=== PATIENT | female | born 1965 | race Two or more races ===

== ENCOUNTER 2024-03-07 14:17 | Inpatient (IN) | payer MEDICAID, OTHER ==
[~2024-03-07] VITALS: Ht 162.6 cm; Wt 78.4 kg
--- NOTE | 2024-03-07 15:15 | ED.PDOC ---
History of Present Illness HPI Comments A 58 year old female presents to the ED with a chief complaint of nausea and vomiting onset December 2023. Patient states her symptoms began when she was in [place], was not prescribed medication, came to [facility] and was treated. Patient also noticed constipation for the past few months, has been taking Lactulose daily, increased urination causing her to wear diapers, nausea, vomiting, "feels something stuck" in her epigastric region causing sharp pain and inability to tolerate food or fluids. Patient noticed she slowly has to take sips of water. Upon triage, patient's blood glucose was 411 and denies and history of DM. No other symptoms or modifying factors present at this time. 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 Pertinent MARKETING TRAFFIC MANAGER History Family History Family History: Reviewed,noncontributory to illness, No family hx of Cancer, No family hx of DM, No family hx of Heart maia, No family hx of HTN, No family hx ofKidney maia, No family hx of Liver maia, No family hx of Lung maia, No family hx of Stroke Social History Smoker: Non-Smoker Alcohol: Denies ETOH Use Drugs: Denies Drug Use Lives In: Home Constitutional: denies: chills, diaphoresis, fatigue, fever, malaise, sweats, weakness, others EENTM: denies: blurred vision, double vision, ear bleeding, ear discharge, ear drainage, ear pain, ear ringing, eye pain, eye redness, hearing loss, mouth pain, mouth swelling, nasal discharge, nose bleeding, nose congestion, nose pain, photophobia, tearing, throat pain, throat swelling, voice changes, others Respiratory: reports: shortness of breath; denies: cough, hemoptysis, orthopnea, SOB at rest, SOB with excertion, stridor, wheezing, others Cardiovascular: denies: chest pain, dizzy spells, diaphoresis, Dyspnea on exertion, edema, irregular heart beat, left arm pain, lightheadedness, palpitations, PND, syncope, others Gastrointestinal: reports: constipated, difficulty swallowing, nausea, poor fluid intake, vomiting; denies: abdomen distended, abdominal pain, blood streaked bowels, diarrhea, dysphagia, hematemesis, melena, poor appetite, rectal bleeding, rectal pain, others Genitourinary: denies: abnormal vagina bleeding, burning, dyspareunia, dysuria, flank pain, frequency, hematuria, incontinence, pain, , vagina discharge, urgency, others Neurological: denies: dizziness, fainting, headache, left sided numbness, left sided weakness, numbness, paresthesia, pre-existing deficit, right sided numbness, right sided weakness, seizure, speech problems, tingling, tremors, weakness, others Musculoskeletal: denies: back pain, gout, joint pain, joint swelling, muscle p ain, muscle stiffness, neck pain, others Integumetry: denies: bruises, change in color, change in hair/nails, dryness, laceration, lesions, lumps, rash, wounds, others Allergic/Immunocompromised: denies: Difficulty Healing, Frequent Infections, Hives, Itching, others Hematologic/Lymphatic: denies: anemia, blood clots, easy bleeding, easy bruising, swollen glands, others Endocrine: reports: excessive urination; denies: excessive hunger, excessive sweating, excessive thirst, flushing, intolerance to cold, intolerance to heat, unexplained weight gain, unexplained weight loss, others Psychiatric: denies: anxiety, bipolar disorder, depression, hopeless, panic disorder, schizophrenia, sleepless, suicidal, others All Other Systems: Reviewed and Negative Physical Exam General Appearance: No Apparent Distress HEENT: Other (Dry mucous membranes) Neck: Full Range of Motion, Normal Inspection Respiratory: Lungs Clear, No Accessory Muscle Use, No Respiratory Distress, Normal Breath Sounds Cardiovascular: No Edema, No JVD, Regular Rate/Rhythm Breast Exam: Deferred Gastrointestinal: Non Tender, Soft Genitalia: Deferred Pelvic: Deferred Rectal: Deferred Extremities: Normal inspection, Normal range of motion, Non-tender, No pedal edema Neurologic: Alert, Normal Affect, Normal Mood, Other (Ambulatory without difficulty. No gross focal deficit.) Cerebellar Function: NOT DONE Reflexes: NOT DONE Skin: Dry, Normal Color, Warm Lymphatic: NOT DONE Was a procedure done? Was a procedure done?: No Differential Dx Considerations may include: Gastritis, GERD, esophagitis, dehydration, electrolyte imbalance, hyperglycemia, hyperglycemic hyperosmolar state, DKA, ABIOLA among others X-Ray, Labs, Meds, VS Vital Signs Date Time Temp Pulse Resp B/P (MAP) Pulse Ox O2 Delivery O2 Flow Rate FiO2 03/07/24 18:27 79 18 113/78 (90) 97 03/07/24 18:27 79 79 97 Room Air 03/07/24 14:57 98.2 91 16 110/80 (90) 99 Lab Test 03/07/24 16:47 03/07/24 15:50 Range/Units Troponin I High Sensitivity 6 5 </=34 ng/L White Blood Count 4.6 4.4-10.8 10^3/uL Red Blood Count 4.94 4.0-5.20 10^6/uL Hemoglobin 14.6 12.2-16.2 g/dL Hematocrit 44.7 36.0-46.0 % Mean Corpuscular Volume 90.4 80.0-100.0 fL Mean Corpuscular Hemoglobin 29.5 28.0-32.0 pg Mean Corpuscular Hemoglobin Concent 32.6 32.0-36.0 g/dL Red Cell Distribution Width 14.9 H 11.8-14.3 % Platelet Count 167 140-450 10^3/uL Mean Platelet Volume 10.9 H 6.9-10.8 fL Neutrophils (%) (Auto) 41.1 37.0-80.0 % Lymphocytes (%) (Auto) 44.2 10.0-50.0 % Monocytes (%) (Auto) 7.2 0.0-12.0 % Eosinophils (%) (Auto) 6.6 0.0-7.0 % Basophils (%) (Auto) 0.9 0.0-2.0 % Neutrophils # (Auto) 1.9 1.6-8.6 10 ^3/uL Lymphocytes # (Auto) 2.1 0.4-5.4 10 ^3/uL Monocytes # (Auto) 0.3 0-1.3 10 ^3/uL Eosinophils # (Auto) 0.3 0-0.8 10 ^3/uL Basophils # (Auto) 0 0-0.2 10 ^3/uL Nucleated Red Blood Cells 0.5 % Sodium Level 134 L 136-145 mmol/L Potassium Level 4.8 3.5-5.1 mmol/L Chloride Level 96 L 98-107 mmol/L Carbon Dioxide Level 19 L 20-31 mmol/L Anion Gap 19 H 5-15 Blood Urea Nitrogen 8 L 9-23 mg/dL Creatinine 1.51 H 0.550-1.02 mg/dL Glomerular Filtration Rate Calc 40 >90 mL/min BUN/Creatinine Ratio 5.3 L 10.0-20.0 Serum Glucose 426 *H 74-106 mg/dL Calcium Level 10.7 H 8.7-10.4 mg/dL Total Bilirubin 0.6 0.2-1.0 mg/dL Aspartate Amino Transferase (AST) 16 13-40 U/L Alanine Aminotransferase (ALT) 21 7-40 U/L Alkaline Phosphatase 126 H 46-116 U/L B-Type Natriuretic Peptide Pending Total Protein 7.1 5.7-8.2 g/dL Albumin 4.7 3.2-4.8 g/dL Lipase 33 12-53 U/L Beta-Hydroxybutyric Acid > 4.500 H < 0.4 mmol/L Current Medications Medications (Trade) Dose Ordered Sig/Sidney Route Start Time Stop Time Status Last Admin Sodium Chloride 1,000 ml @ 1,000 mls/hr Q1H ONCE IV 03/07/24 15:30 03/07/24 16:29 DC 03/07/24 15:30 Lidocaine HCl (Xylocaine 2% Viscous) 10 ml ONCE ONCE PO 03/07/24 15:30 03/07/24 15:31 DC 03/07/24 15:30 Belladonna Alkaloids/ Phenobarbital ( Elixir) 10 ml ONCE ONCE PO 03/07/24 15:30 03/07/24 15:31 DC 03/07/24 15:30 Al Hydrox/Mg Hydrox/Simethicone (Maalox Plus) 30 ml ONCE ONCE PO 03/07/24 15:30 03/07/24 15:31 DC 03/07/24 15:30 PROCEDURE(s): CXRP - CHEST PORTABLE REASON: cp ORDER NUMBER(s): [id number], ACCESSION NUMBER(s): [id number] CHEST RADIOGRAPH Indication: cp Technique: Single frontal view of the chest was obtained COMPARISON: None FINDINGS: Lines and Tubes: None Lungs: Right middle lobe opacity may reflect atelectasis or mild pneumonia. Pleura: No effusion. No pneumothorax. Cardiomediastinal contours: Unremarkable Bones: Unremarkable IMPRESSION: 1. Right middle lobe opacity may reflect atelectasis or mild pneumonia. X-Ray, Labs, Meds, VS Comment 58-year-old female with no known past medical history complaining of nausea, vomiting, esophageal pain, and found to have glucose in the 400s Vitals unremarkable Exam remarkable for dry mucous membranes Rhythm strip independently interpreted by me: Sinus rhythm, rate 91, no ectopy. Chest x-ray: IMPRESSION: 1. Right middle lobe opacity may reflect atelectasis or mild pneumonia. CBC unremarkable, comprehensive metabolic panel remarkable for sodium 134, chloride 96, CO2 19, BUN 8, creatinine 1.51, glucose 426, anion gap 19 Beta hydroxybutyrate greater than 4.5 UA and ABG pending Patient treated with the following in the ED: 1 L 0.9 normal saline IV bolus, regular insulin 6 units IV, followed by DKA protocol. Patient also received Rocephin 1 g IV and Zithromax 500 mg IV for coverage of possible pneumonia. Plan is to admit the patient for close control, IV antibiotics and possible GI evaluation. Time of 1ST Reevaluation: 15:28 Reevaluation 1ST: Unchanged Patient Education/Counseling: Diagnosis, Treatment, Prognosis Family Education/Counseling: No Family Present Additional Information HI Data VOL/Complexity Ordered tests: LAB, EKG, XY, PHA reviewed results: TROP, TROP, TROP, CBC, CMP, BNP, UA, LIPASE, BETA- HYDROXYBUTYRATE Interpreted results: XY, EKG, Discuss tx/ results: patient, medical personnel, Departure 1 Departure Time of Disposition: 18:40 Impression: Primary Impression: DKA (diabetic ketoacidosis) Qualified Codes: E13.10 - Other specified diabetes mellitus with ketoacidosis without coma Additional Impressions: Pneumonia Qualified Codes: J18.9 - Pneumonia, unspecified organism Dysphagia Qualified Codes: R13.10 - Dysphagia, unspecified Disposition: 09 ADMITTED INPATIENT Admit to: [facility] Condition: Guarded Critical Care Note Critical Care Time?: Yes (45 min-critical care time only) Critical care comment: Critical care time including multiple bedside re-evaluations, review of lab and imaging studies, and discussion of the case with the admitting provider. Patient is high risk for metabolic decompensation. Stability Stability form required: No Heart Score Heart Score: Heart Score Response (Comments) Value History N/A 0 EKG N/A 0 Age N/A 0 Risk Factors N/A 0 Troponin N/A 0 Total 0 I personally scribed for CECIL AVINA MD ([email or web address]) on 03/07/24 at 15:15. Electronically submitted by Chaisty Moore ([email or web address]). I personally scribed for CECIL AVINA MD ([email or web address]) on 03/07/24 at 15:20. Electronically submitted by Chasity Moore ([email or web address]). I personally scribed for CECIL AVINA MD ([email or web address]) on 03/07/24 at 15:35. Electronically submitted by Chasity Moore ([email or web address]). CECIL AVINA MD Mar 07, 2024 15:15
[2024-03-07] MEDS: MAALOX PLUS or MAALOX 30 ML PO ONE (15:30)
[2024-03-07] MEDS: LIDOCAINE VISCOUS 2% 15ML UD PO ONE (15:30)
[2024-03-07] MEDS: SODIUM CHLORIDE 0.9% 1,000 ML IV ONE (15:30)
[2024-03-07] MEDS: DONNATAL 5ml ORAL Elix (BELLADONNA ALK-PHENOBARB) PO ONE (15:30)
--- NOTE | 2024-03-07 15:52 | DVH ---
CHEST RADIOGRAPH Indication: cp Technique: Single frontal view of the chest was obtained COMPARISON: None FINDINGS: Lines and Tubes: None Lungs: Right middle lobe opacity may reflect atelectasis or mild pneumonia. Pleura: No effusion. No pneumothorax. Cardiomediastinal contours: Unremarkable Bones: Unremarkable IMPRESSION: 1. Right middle lobe opacity may reflect atelectasis or mild pneumonia.
[2024-03-07 16:28] LABS: Basophils # (auto) 0 10 ^3/uL (0-0.2); Basophils % (auto) 0.9 % (0.0-2.0); Eosinophils # (auto) 0.3 10 ^3/uL (0-0.8); Eosinophils % (auto) 6.6 % (0.0-7.0); Hematocrit 44.7 % (36.0-46.0); Hemoglobin 14.6 g/dL (12.2-16.2); Lymphocytes # (auto) 2.1 10 ^3/uL (0.4-5.4); Lymphocytes % (auto) 44.2 % (10.0-50.0); Mean Corpuscular Hemoglobin 29.5 pg (28.0-32.0); Mean Corpuscular Hgb Conc. 32.6 g/dL (32.0-36.0); Mean Corpuscular Volume 90.4 fL (80.0-100.0); Monocytes # (auto) 0.3 10 ^3/uL (0-1.3); Monocytes % (auto) 7.2 % (0.0-12.0); Neutrophils # (auto) 1.9 10 ^3/uL (1.6-8.6); Neutrophils % (auto) 41.1 % (37.0-80.0); Nucleated Red Blood Cells % 0.5 %; Platelet Count (auto) 167 10^3/uL (140-450); Red Blood Cells 4.94 10^6/uL (4.0-5.20); Red Cell Distribution Width 14.9 % (11.8-14.3); White Blood Cell 4.6 10^3/uL (4.4-10.8)
[2024-03-07 16:41] LABS: Alanine Aminotransferase 21 U/L (7-40); Albumin 4.7 g/dL (3.2-4.8); Anion Gap 19 (5-15); Aspartate Aminotransferase 16 U/L (13-40); BUN/Creatinine Ratio 5.3 (10.0-20.0); Bilirubin, Total 0.6 mg/dL (0.2-1.0); Lipase 33 U/L (12-53); Potassium 4.8 mmol/L (3.5-5.1); Total Protein 7.1 g/dL (5.7-8.2)
[2024-03-07 16:53] LABS: Alkaline Phosphatase 126 U/L (46-116); Blood Urea Nitrogen 8 mg/dL (9-23); Calcium 10.7 mg/dL (8.7-10.4); Carbon Dioxide 19 mmol/L (20-31); Chloride 96 mmol/L (98-107); Sodium 134 mmol/L (136-145)
[2024-03-07 16:59] LABS: Glucose 426 mg/dL (74-106)
[2024-03-07] MEDS ORDERED: SODIUM CHLORIDE 0.9% 1,000 ML IV SCH ×2 (18:45→22:45)
[2024-03-07] MEDS ORDERED: DEXTROSE (50%) 50ML SYRG IV PRN ×2 (18:45→19:00)
[2024-03-07] MEDS ORDERED: INSULIN DRIP 100 UNIT/100ML 100 ML IV SCH (18:45)
[2024-03-07] MEDS ORDERED: INSULIN LANTUS (GLARGINE) 1 /0.01ml (100units/ml) SC ONE (18:45)
[2024-03-07 19:00] VITALS: O2SAT 98
[2024-03-07 19:00] LABS: Magnesium 2.2 mg/dL (1.6-2.6)
[2024-03-07] MEDS ORDERED: NITROGLYCERIN 0.4 MG SL TAB SL PRN (19:00)
[2024-03-07] MEDS ORDERED: HYDROcodone-ACET 5/325MG TAB PO PRN (19:00)
[2024-03-07] MEDS ORDERED: MAALOX PLUS or MAALOX 30 ML PO PRN (19:00)
[2024-03-07] MEDS ORDERED: LORazepam 0.5 MG TAB PO PRN (19:00)
[2024-03-07] MEDS ORDERED: MORPHINE SULFATE INJ 2 MG/ml SYRG IV PRN ×2 (19:00)
[2024-03-07] MEDS ORDERED: ACETAMINOPHEN 325 MG TAB PO PRN (19:00)
[2024-03-07] MEDS ORDERED: POTASSIUM CHL 20MEQ/100ML 200 ML IV PRN (19:00)
[2024-03-07 19:02] LABS: Phosphorus 4.2 mg/dL (2.4-5.1)
--- NOTE | 2024-03-07 19:19 | DVHHP2 ---
History of Present Illness Reason for Visit: General weakness History of Present Illness 58-year-old patient with nausea vomiting weakness patient states that she has been having these symptoms for an extended period of time was treated inpatient at [facility] patient had a variety of complaints all over the place including stating she has increased urination increased issues with hydration increased nausea vomiting feeling like she always has food stuck in her stomach patient denies ever having a history of diabetes but on evaluation in the ED patient was shown to have an in acute diabetic gap with acidosis glucose greater than 400 the severely high anion gap patient show the acute signs of DKA states no history of diabetes that she knows of patient was admitted for further evaluation and management currently placed on a insulin drip in the ED Review of Systems Constitutional: Yes: Weakness; No: Fever, Chills, Sweats, Malaise, Other Eyes: No: Pain, Vision change, Conjunctivae inflammation, Eyelid inflammation, Other, Redness ENT: No: Ear pain, Ear discharge, Nose pain, Nose discharge, Nose congestion, Mouth pain, Mouth swelling, Throat pain, Throat swelling, Other Respiratory: Shortness of breath, SOB with excertion; No: Cough, Dry, Wheezing, Hemoptysis, Pleuritic Pain, Sputum, Wheezing, Other Cardiovascular: Chest Pain, Palpitations; No: Orthopnea, Paroxysmal Noc. Dyspnea, Edema, Lt Headedness, Other Gastrointestinal: Nausea, Vomiting, Abdominal Pain; No: Diarrhea, Constipation, Melena, Hematochezia, Other Genitourinary: Dysuria, Frequency, Incontinence; No Hematuria, No Retention, No Other Musculoskeletal: No: other, neck pain, shoulder pain, arm pain, back pain, hand pain, leg pain, foot pain Skin: No: Rash, Lesions, Jaundice, Bruising, Other Neurological: No: Weakness, Numbness, Incoordination, Change in speech, Confu maria esther, Seizures, Other Medications Current Medications Medications Dose Ordered Sig/Sidney Route Start Time Stop Time Status Last Admin Dose Admin Sodium Chloride 1,000 ml @ 500 mls/hr Q2H IV 03/07/24 18:45 03/07/24 22:44 UNV Sodium Chloride 1,000 ml @ 250 mls/hr Q4H IV 03/07/24 22:45 03/08/24 00:44 UNV Sodium Chloride 1,000 ml @ 150 mls/hr Q6H40M IV 03/08/24 00:45 UNV Insulin Human (Reg)/Sodium Chloride 100 ml @ 0.5 mls/hr Q24H IV 03/07/24 18:45 UNV Dextrose 50 ml UD PRN IV 03/07/24 18:45 UNV Diagnostic Test (Pha) 1 strip Q90MIN 03/07/24 19:30 UNV Insulin Glargine 15 units DAILY SC 03/08/24 10:00 UNV Exam Vital Signs Vital Signs Date Time Temp Pulse Resp B/P (MAP) Pulse Ox O2 Delivery O2 Flow Rate FiO2 03/07/24 18:27 79 18 113/78 (90) 97 03/07/24 18:27 Room Air 03/07/24 14:57 98.2 General Appearance: Alert, Oriented X3, moderate distress HEENT: Atraumatic, PERRLA Respiratory: Clear to auscultation, Normal air movement Cardiovascular: Regular rate, Normal S1 Abdominal: Normal bowel sounds, Soft Extremities: No clubbing, No cyanosis Skin: No rashes, No breakdown Neuro: Normal gait, Normal speech Psych/Mental Status: Mood NL Labs/Xrays Labs Test 03/07/24 18:51 03/07/24 18:50 03/07/24 15:50 Range/Units Blood Gas Specimen Type Arterial Blood Gas Sample Site Right radial Blood Gas Patient Temperature 37.0 Arterial Blood Date Drawn [id number] Arterial Blood pH 7.356 7.350-7.450 Arterial Blood Partial Pressure CO2 22.4 L 32.0-45.0 mmHg Arterial Blood Partial Pressure O2 98.7 83.0-108.0 mmHg Arterial Blood HCO3 12.3 L 21.0-28.0 mmol/L Arterial Blood Oxygen Saturation 97.9 94.0-98.0 % Arterial Blood Base Excess -11.0 L -2.0-3.0 mmol/L Arterial Blood Oxyhemoglobin 96.4 94.0-98.0 % Arterial Blood Carboxyhemoglobin 1.1 0.5-1.5 % Arterial Blood Methemoglobin 0.4 0.0-1.5 % Navi Test Modified Blood Gas Total Hemoglobin 14.50 12.0-16.0 g/dL Blood Gas Modality Room air FiO2 % 21.0 White Blood Count 4.6 4.4-10.8 10^3/uL Red Blood Count 4.94 4.0-5.20 10^6/uL Hemoglobin 14.6 12.2-16.2 g/dL Hematocrit 44.7 36.0-46.0 % Mean Corpuscular Volume 90.4 80.0-100.0 fL Mean Corpuscular Hemoglobin 29.5 28.0-32.0 pg Mean Corpuscular Hemoglobin Concent 32.6 32.0-36.0 g/dL Red Cell Distribution Width 14.9 H 11.8-14.3 % Platelet Count 167 140-450 10^3/uL Mean Platelet Volume 10.9 H 6.9-10.8 fL Neutrophils (%) (Auto) 41.1 37.0-80.0 % Lymphocytes (%) (Auto) 44.2 10.0-50.0 % Monocytes (%) (Auto) 7.2 0.0-12.0 % Eosinophils (%) (Auto) 6.6 0.0-7.0 % Basophils (%) (Auto) 0.9 0.0-2.0 % Neutrophils # (Auto) 1.9 1.6-8.6 10 ^3/uL Lymphocytes # (Auto) 2.1 0.4-5.4 10 ^3/uL Monocytes # (Auto) 0.3 0-1.3 10 ^3/uL Eosinophils # (Auto) 0.3 0-0.8 10 ^3/uL Basophils # (Auto) 0 0-0.2 10 ^3/uL Nucleated Red Blood Cells 0.5 % Phosphorus Level 4.2 2.4-5.1 mg/dL Magnesium Level 2.2 1.6-2.6 mg/dL Total Bilirubin 0.6 0.2-1.0 mg/dL Aspartate Amino Transferase (AST) 16 13-40 U/L Alanine Aminotransferase (ALT) 21 7-40 U/L Alkaline Phosphatase 126 H 46-116 U/L Total Protein 7.1 5.7-8.2 g/dL Albumin 4.7 3.2-4.8 g/dL Lipase 33 12-53 U/L Beta-Hydroxybutyric Acid > 4.500 H < 0.4 mmol/L Assessment/Plan Assessment/Plan Admit to [facility] DKA without coma Suspected pneumonia community-acquired DKA protocol Patient with a anion gap greater than 18 Continue with aggressive IV fluid management For suspected pneumonia we will continue with IV antibiotics and p.o. antibiotics IV ceftriaxone and p.o. azithromycin P.r.n. breathing treatments with albuterol and ipratropium We will hold off on steroids as of now due to patient's severely elevated glucose Patient with no stated underlying history of diabetes BNP q.4 to q.6 for evaluation of gap closure Continue insulin drip until gap fully closed Critical care time 42 minutes Plan discussed with: Patient My Orders Orders - GARRY CENTENO MD Procedure Category Date Status Time Insulin Drip Protocol MEENAKSHI 03/07/24 In Process Sodium Chloride 0.9% PHA 03/07/24 Logged 19:00 Sodium Chloride 0.9% PHA 03/07/24 Logged 23:00 Sodium Chloride 0.9% PHA 03/08/24 Logged 01:00 D5w/Sod Chl 0.45%/Kcl PHA 03/07/24 Logged 20meq 19:00 Potassium Chl PHA 03/07/24 Logged 20meq/100ml 19:00 Dextrose 50% Syringe PHA 03/07/24 Logged 19:00 Glucose Blood PHA 03/07/24 Logged (Accu-Chek Comfort 19:30 Complete Blood Count LAB 03/07/24 Logged 18:50 Abg W/ Co-Ox RT 03/07/24 Logged 18:50 Basic Metabolic Panel LAB 03/08/24 Verified 00:50 Basic Metabolic Panel LAB 03/08/24 Verified 06:50 Basic Metabolic Panel LAB 03/08/24 Verified 12:50 Neurological MEENAKSHI 03/07/24 In Process Assessment 18:50 Vs/Hemodynamics MEENAKSHI 03/07/24 In Process 18:50 Insulin R (Human) PHA 03/07/24 Logged (Insulin R) 22:00 Insulin Drip 100 PHA 03/07/24 Logged Unit/100ml (Myxredlin 19:00 Insulin Lantus PHA 03/07/24 Logged (Glargine) (Lantus) 19:00 Insulin Lantus PHA 03/08/24 Logged (Glargine) (Lantus) 10:00 Ceftriaxone 1gm/50ml PHA 03/08/24 Logged D5w (Rocephin) 10:00 Azithromycin Tablet PHA 03/08/24 Logged (Zithromax Tablet) 10:00 Albuterol Medneb PHA 03/07/24 Logged (Ventolin Medneb) 19:00 Ipratropium Medneb PHA 03/07/24 Logged (Atrovent Medneb) 19:00 Med Neb Initial RT 03/07/24 Logged Treatment 18:50 Admit ADMIT 03/07/24 Transmitted 18:50 Code Status CODE 03/07/24 Transmitted 18:50 Vital Signs MEENAKSHI 03/07/24 In Process 18:50 Review Orders With [facility] 03/07/24 In Process Adm. 18:50 Consistent DIET 03/08/24 Transmitted Carb(Ccho)Diabetes Breakfast Lorazepam Tablet PHA 03/07/24 Logged (Ativan Tablet) 19:00 Alum & Mag PHA 03/07/24 Logged Hydrox-Simethicone 19:00 Docusate Sodium PHA 03/07/24 Logged Capsule (Colace 19:00 Acetaminophen Tablet PHA 03/07/24 Logged (Tylenol Tablet) 19:00 Temazepam (Restoril) PHA 03/07/24 Logged 19:00 Notify Md Of Changes [facility] 03/07/24 In Process From Base 18:50 Advance Directive [facility] 03/07/24 In Process 18:50 Patient Condition ORDERS 03/07/24 Transmitted 18:50 Allergies MEENAKSHI 03/07/24 In Process 18:50 Hydrocodone-Acet PHA 03/07/24 Logged 5/325mg Tab ([place] 19:00 Ondansetron Hcl PHA 03/07/24 Logged (Zofran) 19:00 Morphine Sulfate PHA 03/07/24 Logged Injection 19:00 Nitroglycerin PHA 03/07/24 Logged Sublingual (Ntrostat 19:00 Morphine Sulfate [facility] 03/07/24 Logged Injection 19:00 Stat Ekg For Chest [facility] 03/07/24 In Process Pain 18:50 Notify Of Changes [facility] 03/07/24 In Process From Base 18:50 Security Researcher For [facility] 03/07/24 In Process 24 Hours 18:50 Emergency Dysrhythmia [facility] 03/07/24 In Process Protocol 18:50 Rhythm Strips Once [facility] 03/07/24 In Process Every Shift 18:50 Oxygen By Nasal RT 03/07/24 Transmitted Cannula 18:50 Problem List: (1) DKA (diabetic ketoacidosis) (2) Pneumonia (3) Dysphagia Date of Service: Mar 07, 2024 Billing Provider: GARRY CENTENO MD Common Visit Codes: [id number] CARE 30-74 MIN GARRY CENTENO MD Mar 07, 2024 19:19
[2024-03-07] MEDS: ACCU-CHEK COMFORT CURVE STRIP VI SCH (19:23)
[2024-03-07] MEDS ORDERED: ACCU-CHEK COMFORT CURVE STRIP VI SCH (19:30)
[2024-03-07] MEDS: PANTOPRAZOLE 40 MG/10 ML VIAL INJ IV ONE (19:33)
[2024-03-07] MEDS: ONDANSETRON HCL 4 MG/2 ML VIAL IV ONE (19:34)
[2024-03-07 19:36] VITALS: BP 113/78; PULSE 79; RESP 18; TEMP 98.2; O2SAT 97
[2024-03-07 19:40] LABS: Potassium 5.1 mmol/L (3.5-5.1)
[2024-03-07 19:41] LABS: Anion Gap 28 (5-15)
[2024-03-07 19:42] LABS: Urine Bacteria None Seen /hpf (None Seen)
[2024-03-07] MEDS: InsuLIN REG 1unit/0.01ml Soln (100units/ml) IV ONE (19:43)
[2024-03-07 19:46] LABS: BUN/Creatinine Ratio 4.4 (10.0-20.0)
[2024-03-07 19:48] VITALS: PULSE 90; RESP 18; O2SAT 98
[2024-03-07 19:49] LABS: Blood Urea Nitrogen 7 mg/dL (9-23); Carbon Dioxide 10 mmol/L (20-31); Chloride 96 mmol/L (98-107); Sodium 134 mmol/L (136-145)
[2024-03-07 19:53] LABS: Glucose 435 mg/dL (74-106)
[2024-03-07 20:04] LABS: Urine Blood Negative /uL (Negative); Urine Clarity Clear (Clear); Urine Color Light-Yellow (Yellow); Urine Protein, UAD 1+ (Negative); Urine Specific Gravity 1.038 (1.001-1.035); Urine Urobilinogen Normal (Negative); Urine WBC 1 /hpf (0 - 5); Urine pH 5.5 (5.0-9.0)
[2024-03-07] MEDS: cefTRIAXone 1GM/50ML D5W 50 ML IV ONE (21:11)
[2024-03-07] MEDS: SODIUM CHLORIDE 0.9% 1,000 ML IV SCH (21:11)
[2024-03-08] MEDS: AZITHROMYCIN 500MG/ 250ML 250 ML IV ONE (00:31)
[2024-03-08] MEDS ORDERED: SODIUM CHLORIDE 0.9% 1,000 ML IV SCH (00:45)
[2024-03-08 01:33] LABS: Chloride 105 mmol/L (98-107); Potassium 4.7 mmol/L (3.5-5.1); Sodium 141 mmol/L (136-145)
[2024-03-08 01:34] LABS: Anion Gap 23 (5-15); Calcium 9.5 mg/dL (8.7-10.4); Carbon Dioxide 13 mmol/L (20-31)
[2024-03-08 01:39] LABS: BUN/Creatinine Ratio 6.1 (10.0-20.0); Blood Urea Nitrogen 7 mg/dL (9-23); Glucose 306 mg/dL (74-106)
[2024-03-08] MEDS: D5W/SOD CHL 0.45%/KCL 20MEQ 1,000 ML IV SCH (01:40)
[2024-03-08] MEDS: INSULIN LANTUS (GLARGINE) 1 /0.01ml (100units/ml) SC ONE (01:56)
[2024-03-08] MEDS: INSULIN DRIP 100 UNIT/100ML 100 ML IV SCH (02:17)
[2024-03-08] MEDS: SODIUM CHLORIDE 0.9% 1,000 ML IV SCH ×2 (03:34→03:53)
[2024-03-08 06:48] VITALS: O2SAT 95
[2024-03-08 07:24] LABS: Sodium 143 mmol/L (136-145)
[2024-03-08 07:25] LABS: Anion Gap 19 (5-15)
[2024-03-08 07:34] LABS: Carbon Dioxide 15 mmol/L (20-31); Chloride 109 mmol/L (98-107); Potassium 3.3 mmol/L (3.5-5.1)
[2024-03-08 07:35] LABS: Blood Urea Nitrogen 6 mg/dL (9-23); Glucose 154 mg/dL (74-106)
[2024-03-08 08:40] VITALS: PULSE 59; RESP 12; O2SAT 95
[2024-03-08] MEDS ORDERED: INSULIN LANTUS (GLARGINE) 1 /0.01ml (100units/ml) SC SCH (10:00)
[2024-03-08] MEDS ORDERED: cefTRIAXone 1GM/50ML D5W 50 ML IV SCH (10:00)
[2024-03-08] MEDS: INSULIN LANTUS (GLARGINE) 1 /0.01ml (100units/ml) SC SCH (10:24)
[2024-03-08] MEDS: InsuLIN REG 1unit/0.01ml Soln (100units/ml) SC SCH ×2 (12:48→17:13)
[2024-03-08] MEDS: ONDANSETRON HCL 4 MG/2 ML VIAL IV PRN (13:32)
[2024-03-08 13:48] LABS: Potassium 3.7 mmol/L (3.5-5.1); Sodium 141 mmol/L (136-145)
[2024-03-08 13:49] VITALS: PULSE 62; RESP 14; O2SAT 98
[2024-03-08 13:49] LABS: Anion Gap 14 (5-15)
[2024-03-08] MEDS: IPRATROPIUM BROM 0.5 MG/2.5ML INH SOL NEB PRN (13:49)
[2024-03-08] MEDS: ALBUTEROL SULF 2.5 MG/0.5ML(0.5%) NEB SOLN NEB PRN (13:49)
[2024-03-08 13:50] LABS: Calcium 8.9 mg/dL (8.7-10.4)
[2024-03-08 13:55] LABS: BUN/Creatinine Ratio 5.2 (10.0-20.0); Blood Urea Nitrogen 5 mg/dL (9-23); Carbon Dioxide 18 mmol/L (20-31); Chloride 109 mmol/L (98-107); Glucose 170 mg/dL (74-106)
[2024-03-08 13:59] VITALS: PULSE 61; RESP 15; O2SAT 100
[2024-03-08] MEDS ORDERED: DEXTROSE (50%) 50ML SYRG IV PRN (16:00)
[2024-03-08] MEDS: ACCU-CHEK COMFORT CURVE STRIP VI SCH (17:13)
[2024-03-08] MEDS: AZITHROMYCIN 250 MG TAB PO SCH (17:23)
--- NOTE | 2024-03-08 17:42 | DVHPN2 ---
Subjective Assuming the care of the patient from today onwards. Patient is currently out of DKA off the insulin drip. Reviewed: Care Plan Changes from previous H/P or p: No Changes Eyes: No Pain, No Vision change, No Conjunctivae inflammation, No Eyelid inflammation, No Other, No Redness ENT: No Ear pain, No Ear discharge, No Nose pain, No Nose discharge, No Nose congestion, No Mouth pain, No Mouth swelling, No Throat pain, No Throat swelling, No Other Cardiovascular: Chest Pain, Palpitations; No Orthopnea, No Paroxysmal Noc. Dyspnea, No Edema, No Lt Headedness, No Other Respiratory: No Cough, No Dry; Shortness of breath, SOB with excertion; No Wheezing, No Hemoptysis, No Pleuritic Pain, No Sputum, No Other Gastrointestinal: Nausea, Vomiting, Abdominal Pain; No Diarrhea, No Constipation, No Melena, No Hematochezia, No Other Genitourinary: Dysuria, Frequency, Incontinence; No Hematuria, No Retention, No Other Musculoskeletal: No other, No neck pain, No shoulder pain, No arm pain, No back pain, No hand pain, No leg pain, No foot pain Skin: No Rash, No Lesions, No Jaundice, No Bruising, No Other Objective Vitals Vital Signs Date Time Temp Pulse Resp B/P (MAP) Pulse Ox O2 Delivery O2 Flow Rate FiO2 03/08/24 16:00 74 16 97/52 (67) 98 03/08/24 13:49 Room Air* 0 21 03/08/24 08:40 97.8 97.8 Intake/Output Intake and Output 03/08/24 07:00 Intake Total 1874 ml Balance 1874 ml Intake IV Total 1874 ml Exam HEENT pupils are reactive Neck is supple CV is S1-S2 regular rate and rhythm Respiratory bilateral clear GI positive bowel sound Extremity no edema [employer] no motor deficit Medications Current Medications Medications Dose Ordered Sig/Sidney Route Start Time Stop Time Status Last Admin Dose Admin Potassium Chloride 200 ml @ 50 mls/hr ONCE PRN IV 03/07/24 19:00 03/08/24 16:59 Cancel Dextrose 50 ml UD PRN IV 03/07/24 19:00 Cancel Azithromycin 500 mg DAILY@DINNER PO 03/08/24 17:30 03/08/24 17:23 500 MG Albuterol 2.5 mg Q4HPRN PRN NEB 03/07/24 19:00 03/08/24 13:49 2.5 MG Ipratropium [place] 0.5 mg Q4HPRN PRN NEB 03/07/24 19:00 03/08/24 13:49 0.5 MG Lorazepam 0.5 mg Q6HP PRN PO 03/07/24 19:00 Al Hydrox/Mg Hydrox/Simethicone 30 ml Q6HP PRN PO 03/07/24 19:00 Docusate Sodium 100 mg BIDPRN PRN PO 03/07/24 19:00 Acetaminophen 650 mg Q6HP PRN PO 03/07/24 19:00 Hold Temazepam 15 mg QHSP PRN PO 03/07/24 19:00 Ondansetron HCl 4 mg Q4HP PRN IV 03/07/24 19:00 03/08/24 13:32 4 MG Morphine Sulfate 2 mg Q4HPRN PRN IV 03/07/24 19:00 Nitroglycerin 0.4 mg Q5MINP PRN SL 03/07/24 19:00 Morphine Sulfate 2 mg Q30M PRN IV 03/07/24 19:00 Ceftriaxone Sodium 50 ml @ 100 mls/hr Q24H IV 03/08/24 21:00 Diagnostic Test (Pha) 1 strip ACHS 03/08/24 17:00 03/08/24 17:13 1 STRIP Insulin Human Regular ACHS SC 03/08/24 17:00 03/08/24 17:13 4 UNITS Dextrose 50 ml UD PRN IV 03/08/24 16:00 Laboratory Results Laboratory Tests 03/07/24 15:50 Chemistry Test 03/07/24 18:50 03/08/24 00:44 03/08/24 06:18 03/08/24 13:25 Calcium Level 11.0 mg/dL (8.7-10.4) H 9.5 mg/dL (8.7-10.4) 9.0 mg/dL (8.7-10.4) 8.9 mg/dL (8.7-10.4) Test 03/08/24 17:31 Calcium Level Pending Magnesium Level Pending Phosphorus Level Pending Urinalysis Test 03/07/24 18:34 Urine Color Light-yellow (Yellow) Urine Clarity Clear (Clear) Urine pH 5.5 (5.0-9.0) Urine Specific [place] 1.038 (1.001-1.035) Urine Protein 1+ (Negative) H Urine Ketones 4+ (Negative) H Urine Blood Negative /uL (Negative) Urine Nitrite Negative (Negative) Urine Bilirubin Negative (Negative) Urine Urobilinogen Normal mg/dL (Negative) Urine Leukocyte Esterase Negative /uL (Negative) Urine RBC <1 /hpf (0 - 4) Urine WBC 1 /hpf (0 - 5) Urine Squamous Epithelial Cells None seen /hpf (<5) Urine Bacteria None seen /hpf (None Seen) Urine Glucose 4+ mg/dL (Normal) H Blood Gas Results Test 03/07/24 18:51 Arterial Blood pH 7.356 (7.350-7.450) FiO2 % 21.0 Assessment/Plan Assessment/Plan 58-year-old female with a nausea and vomiting, increased urination, polyphagia polydipsia and polyuria found to have 1. Diabetic ketoacidosis 2. Diabetes mellitus type 2 new onset 3. Metabolic acidosis secondary to 1. Resolved -plan is transition insulin to subcu insulin Lantus, started to ADA diet -diabetic education - Insulin teaching-discharge plan Plan discussed with: Patient My Orders Orders - OLEG BARKER MD Procedure Category Date Status Time Basic Metabolic Panel LAB 03/08/24 In Process 16:44 Magnesium LAB 03/08/24 In Process 16:44 Phosphorus LAB 03/08/24 In Process 16:44 Date of Service: Mar 08, 2024 Billing Provider: OLEG BARKER MD Common Visit Codes: [id number] INP/OBS CARE(MOD) OLEG BARKER MD Mar 08, 2024 17:42
[2024-03-08 18:02] LABS: Potassium 4.7 mmol/L (3.5-5.1); Sodium 140 mmol/L (136-145)
[2024-03-08 18:03] LABS: Anion Gap 13 (5-15)
[2024-03-08 18:08] LABS: BUN/Creatinine Ratio 4.9 (10.0-20.0)
[2024-03-08 18:09] LABS: Magnesium 1.8 mg/dL (1.6-2.6)
[2024-03-08 18:17] LABS: Blood Urea Nitrogen 5 mg/dL (9-23); Carbon Dioxide 19 mmol/L (20-31); Chloride 108 mmol/L (98-107); Glucose 230 mg/dL (74-106); Phosphorus 2.1 mg/dL (2.4-5.1)
[2024-03-08] MEDS: cefTRIAXone 1GM/50ML D5W 50 ML IV SCH (20:48)
[2024-03-08] MEDS: TEMAZEPAM 15 MG CAP PO PRN (20:56)
[2024-03-08 22:49] VITALS: PULSE 73; RESP 16; O2SAT 95
[2024-03-08 22:59] VITALS: PULSE 72; RESP 16; O2SAT 99
[2024-03-09] VITALS (14 sets, daily range): BP systolic 108–138; BP diastolic 56–84; PULSE 59–87; RESP 16–20; TEMP 97.5–98.2; O2SAT 95–100
[2024-03-09] MEDS: DOCUSATE SOD 100 MG CAP PO PRN (05:59)
[2024-03-09] MEDS: IBUPROFEN 400 MG TAB PO PRN (11:46)
--- NOTE | 2024-03-09 15:32 | DVHPN2 ---
Subjective sugars has improved to 200s today Reviewed: Care Plan Changes from previous H/P or p: No Changes Eyes: No Pain, No Vision change, No Conjunctivae inflammation, No Eyelid inflammation, No Other, No Redness ENT: No Ear pain, No Ear discharge, No Nose pain, No Nose discharge, No Nose congestion, No Mouth pain, No Mouth swelling, No Throat pain, No Throat swelling, No Other Cardiovascular: Chest Pain, Palpitations; No Orthopnea, No Paroxysmal Noc. Dyspnea, No Edema, No Lt Headedness, No Other Respiratory: No Cough, No Dry; Shortness of breath, SOB with excertion; No Wheezing, No Hemoptysis, No Pleuritic Pain, No Sputum, No Other Gastrointestinal: Nausea, Vomiting, Abdominal Pain; No Diarrhea, No Constipation, No Melena, No Hematochezia, No Other Genitourinary: Dysuria, Frequency, Incontinence; No Hematuria, No Retention, No Other Musculoskeletal: No other, No neck pain, No shoulder pain, No arm pain, No back pain, No hand pain, No leg pain, No foot pain Skin: No Rash, No Lesions, No Jaundice, No Bruising, No Other Objective Vitals Vital Signs Date Time Temp Pulse Resp B/P (MAP) Pulse Ox O2 Delivery O2 Flow Rate FiO2 03/09/24 12:41 98.1 59 18 116/68 (84) 99 98.1 03/09/24 08:13 Room Air* 0 21 Intake/Output Intake and Output 03/09/24 05:00 Intake Total 3403 ml Balance 3403 ml Intake Oral 50 ml IV Total 3353 ml # Voids 2 General Appearance: Alert, Oriented X3 HEENT: Atraumatic Lungs: Clear to auscultation Cardiovascular: Regular rate Medications Current Medications Medications Dose Ordered Sig/Sidney Route Start Time Stop Time Status Last Admin Dose Admin Potassium Chloride 200 ml @ 50 mls/hr ONCE PRN IV 03/07/24 19:00 03/08/24 16:59 Cancel Dextrose 50 ml UD PRN IV 03/07/24 19:00 Cancel Azithromycin 500 mg DAILY@DINNER PO 03/08/24 17:30 03/08/24 17:23 500 MG Albuterol 2.5 mg Q4HPRN PRN NEB 03/07/24 19:00 03/08/24 22:49 2.5 MG Ipratropium [place] 0.5 mg Q4HPRN PRN NEB 03/07/24 19:00 03/08/24 22:49 0.5 MG Lorazepam 0.5 mg Q6HP PRN PO 03/07/24 19:00 Al Hydrox/Mg Hydrox/Simethicone 30 ml Q6HP PRN PO 03/07/24 19:00 Docusate Sodium 100 mg BIDPRN PRN PO 03/07/24 19:00 03/09/24 05:59 100 MG Temazepam 15 mg QHSP PRN PO 03/07/24 19:00 03/08/24 20:56 15 MG Ondansetron HCl 4 mg Q4HP PRN IV 03/07/24 19:00 03/08/24 13:32 4 MG Morphine Sulfate 2 mg Q4HPRN PRN IV 03/07/24 19:00 Nitroglycerin 0.4 mg Q5MINP PRN SL 03/07/24 19:00 Morphine Sulfate 2 mg Q30M PRN IV 03/07/24 19:00 Ceftriaxone Sodium 50 ml @ 100 mls/hr Q24H IV 03/08/24 21:00 03/08/24 20:48 100 MLS/HR Diagnostic Test (Pha) 1 strip ACHS 03/08/24 17:00 03/09/24 12:01 1 STRIP Insulin Human Regular ACHS SC 03/08/24 17:00 03/09/24 12:01 4 UNITS Dextrose 50 ml UD PRN IV 03/08/24 16:00 Ibuprofen 400 mg Q6HP PRN PO 03/09/24 11:00 03/09/24 11:46 400 MG Laboratory Results Laboratory Tests 03/07/24 15:50 03/08/24 17:31 Chemistry Test 03/08/24 17:31 Calcium Level 9.0 mg/dL (8.7-10.4) Magnesium Level 1.8 mg/dL (1.6-2.6) Phosphorus Level 2.1 mg/dL (2.4-5.1) L HgA1c, TSH Test 03/08/24 17:31 Hemoglobin A1c > 14.0 % A1C (<5.7) H Urinalysis Test 03/07/24 18:34 Urine Color Light-yellow (Yellow) Urine Clarity Clear (Clear) Urine pH 5.5 (5.0-9.0) Urine Specific [place] 1.038 (1.001-1.035) Urine Protein 1+ (Negative) H Urine Ketones 4+ (Negative) H Urine Blood Negative /uL (Negative) Urine Nitrite Negative (Negative) Urine Bilirubin Negative (Negative) Urine Urobilinogen Normal mg/dL (Negative) Urine Leukocyte Esterase Negative /uL (Negative) Urine RBC <1 /hpf (0 - 4) Urine WBC 1 /hpf (0 - 5) Urine Squamous Epithelial Cells None seen /hpf (<5) Urine Bacteria None seen /hpf (None Seen) Urine Glucose 4+ mg/dL (Normal) H Assessment/Plan Assessment/Plan 58-year-old female with a nausea and vomiting, increased urination, polyphagia polydipsia and polyuria found to have 1. Diabetic ketoacidosis 2. Diabetes mellitus type 2 new onset 3. Metabolic acidosis secondary to 1. Resolved -long acting insulin, ADAT -diabetic education Plan discussed with: Patient My Orders Orders - JENNI HERRING MD Procedure Category Date Status Time Ibuprofen Tablet PHA 03/09/24 In Process (Motrin Tablet) 11:00 Date of Service: Mar 09, 2024 Billing Provider: JENNI HERRING MD Common Visit Codes: [id number] INP/OBS CARE(HIGH) JENNI HERRING MD Mar 09, 2024 15:32
[2024-03-09 16:08] LABS: Chloride 105 mmol/L (98-107); Potassium 3.8 mmol/L (3.5-5.1); Sodium 138 mmol/L (136-145)
[2024-03-09 16:09] LABS: Anion Gap 5 (5-15); Calcium 8.7 mg/dL (8.7-10.4); Carbon Dioxide 28 mmol/L (20-31)
[2024-03-09 16:14] LABS: BUN/Creatinine Ratio 8.4 (10.0-20.0)
[2024-03-09 16:21] LABS: Blood Urea Nitrogen 8 mg/dL (9-23); Glucose 330 mg/dL (74-106)
[2024-03-10] VITALS (9 sets, daily range): BP systolic 95–133; BP diastolic 58–65; PULSE 63–69; RESP 17–18; TEMP 97.7–98; O2SAT 94–100
[2024-03-10] MEDS ORDERED: INSU1INJ26 SC (12:26)
--- NOTE | 2024-03-10 18:18 | DVHDS2 ---
Discharge Summary Date of Admission Mar 07, 2024 at 18:50 Date of Discharge: Mar 10, 2024 Labs/Diagnostic Data: Laboratory Results Test 03/10/24 17:39 03/09/24 15:47 03/08/24 17:31 03/07/24 18:51 POC Glucose 259 mg/dl (70-106) Sodium Level 138 mmol/L (136-145) Potassium Level 3.8 mmol/L (3.5-5.1) Chloride Level 105 mmol/L (98-107) Carbon Dioxide Level 28 mmol/L (20-31) Anion Gap 5 (5-15) Blood Urea Nitrogen 8 mg/dL (9-23) Creatinine 0.95 mg/dL (0.550-1.02) Glomerular Filtration Rate Calc 70 mL/min (>90) BUN/Creatinine Ratio 8.4 (10.0-20.0) Serum Glucose 330 mg/dL (74-106) Calcium Level 8.7 mg/dL (8.7-10.4) Hemoglobin A1c > 14.0 % A1C (<5.7) Phosphorus Level 2.1 mg/dL (2.4-5.1) Magnesium Level 1.8 mg/dL (1.6-2.6) Blood Gas Specimen Type Arterial Blood Gas Sample Site Right radial Blood Gas Patient Temperature 37.0 Arterial Blood Date Drawn [id number] Arterial Blood pH 7.356 (7.350-7.450) Arterial Blood Partial Pressure CO2 22.4 mmHg (32.0-45.0) Arterial Blood Partial Pressure O2 98.7 mmHg (83.0-108.0) Arterial Blood HCO3 12.3 mmol/L (21.0-28.0) Arterial Blood Oxygen Saturation 97.9 % (94.0-98.0) Arterial Blood Base Excess -11.0 mmol/L (-2.0-3.0) Arterial Blood Oxyhemoglobin 96.4 % (94.0-98.0) Arterial Blood Carboxyhemoglobin 1.1 % (0.5-1.5) Arterial Blood Methemoglobin 0.4 % (0.0-1.5) Navi Test Modified Blood Gas Total Hemoglobin 14.50 g/dL (12.0-16.0) Blood Gas Modality Room air FiO2 % 21.0 Test 03/07/24 18:50 03/07/24 18:34 03/07/24 15:50 Troponin I High Sensitivity 6 ng/L (</=34) Urine Color Light-yellow (Yellow) Urine Clarity Clear (Clear) Urine pH 5.5 (5.0-9.0) Urine Specific [place] 1.038 (1.001-1.035) Urine Protein 1+ (Negative) Urine Ketones 4+ (Negative) Urine Blood Negative /uL (Negative) Urine Nitrite Negative (Negative) Urine Bilirubin Negative (Negative) Urine Urobilinogen Normal mg/dL (Negative) Urine Leukocyte Esterase Negative /uL (Negative) Urine RBC <1 /hpf (0 - 4) Urine WBC 1 /hpf (0 - 5) Urine Squamous Epithelial Cells None seen /hpf (<5) Urine Bacteria None seen /hpf (None Seen) Urine Glucose 4+ mg/dL (Normal) White Blood Count 4.6 10^3/uL (4.4-10.8) Red Blood Count 4.94 10^6/uL (4.0-5.20) Hemoglobin 14.6 g/dL (12.2-16.2) Hematocrit 44.7 % (36.0-46.0) Mean Corpuscular Volume 90.4 fL (80.0-100.0) Mean Corpuscular Hemoglobin 29.5 pg (28.0-32.0) Mean Corpuscular Hemoglobin Concent 32.6 g/dL (32.0-36.0) Red Cell Distribution Width 14.9 % (11.8-14.3) Platelet Count 167 10^3/uL (140-450) Mean Platelet Volume 10.9 fL (6.9-10.8) Neutrophils (%) (Auto) 41.1 % (37.0-80.0) Lymphocytes (%) (Auto) 44.2 % (10.0-50.0) Monocytes (%) (Auto) 7.2 % (0.0-12.0) Eosinophils (%) (Auto) 6.6 % (0.0-7.0) Basophils (%) (Auto) 0.9 % (0.0-2.0) Neutrophils # (Auto) 1.9 10 ^3/uL (1.6-8.6) Lymphocytes # (Auto) 2.1 10 ^3/uL (0.4-5.4) Monocytes # (Auto) 0.3 10 ^3/uL (0-1.3) Eosinophils # (Auto) 0.3 10 ^3/uL (0-0.8) Basophils # (Auto) 0 10 ^3/uL (0-0.2) Nucleated Red Blood Cells 0.5 % Serum Osmolality 323 mOsm/kg (278-298) Total Bilirubin 0.6 mg/dL (0.2-1.0) Aspartate Amino Transferase (AST) 16 U/L (13-40) Alanine Aminotransferase (ALT) 21 U/L (7-40) Alkaline Phosphatase 126 U/L (46-116) B-Type Natriuretic Peptide 25.64 pg/mL (0-100) Total Protein 7.1 g/dL (5.7-8.2) Albumin 4.7 g/dL (3.2-4.8) Lipase 33 U/L (12-53) Beta-Hydroxybutyric Acid > 4.500 mmol/L (< 0.4) Other Laboratory Tests 03/09/24 15:47 03/07/24 15:50 Brief Hx & Hospital Course: 58-year-old female with a nausea and vomiting, increased urination, polyphagia polydipsia and polyuria found to have 1. Diabetic ketoacidosis 2. Diabetes mellitus type 2 new onset 3. Metabolic acidosis secondary to 1. Resolved Started on insulin drip and then transitioned to long acting and tolerated well Condition at Discharge: Good Final Diagnosis/Problems List DKA resolved Uncontrolled diabetes type 2 withh A1C 14 metabolic acidosis due to dka resolved Discharge Disposition: Home Discharge Instruct/Medications Diet: Regular Activity: No Restrictions, As Tolerated Discharge Statement: "Patient was advised to return to the ER or call 911 if any headaches, dizziness, shortness of breath, chest pain, abdominal pain, bleeding, fevers, or worsening of medical condition. Patient was counseled about treatment plan, medications, possible side effects, patientverbalized understanding. All questions were answered to the best of my ability. This discharge took greater then 30 minutes in planning, reviewing documentation, counseling the patient, and discussing with other team members." ASSESSMENT ASSESSMENT Assessment Date of Service: Mar 10, 2024 Billing Provider: JENNI HERRING MD Common Visit Codes: [id number] DISCH DAY >30min JENNI HERRING MD Mar 10, 2024 18:18
== END 2024-03-10 19:00 | disposition home or self-care (01) | DRG 420 ==
LOC: ER 14:17 → TELE 18:50 → TELE-WESTW 03-09 02:09
PROVIDERS: ADMIT Hospitalist; ATTEND Hospitalist
DX: E11.10 Type 2 diabetes mellitus with ketoacidosis without coma (principal); N17.0 Acute kidney failure with tubular necrosis; R13.10 Dysphagia, unspecified; Z79.4 Long term (current) use of insulin
CPT/HCPCS: 36415; 36600; 71045; 80048; 80053; 81001; 82010; 82805; 82962; 83036; 83690; 83735; 83880; 83930; 84100; 84484; 85025; 94640; 96365; 96375; 99291; G0378; J1815; J2405; J2470

== ENCOUNTER 2024-12-07 10:12 | Emergency (ER) | payer OTHER, MEDICAID ==
[~2024-12-07] VITALS: Ht 160 cm; Wt 82.0 kg
[~2024-12-07 10:12] MED LIST: INSU1INJ26 SC
--- NOTE | 2024-12-07 10:39 | ECG ---
[facility] Test Date: 2024-12-07 Test Time: 10:28:25 Pat Name: MACARIO LEON Department[facility] Patient [facility]: [id number] Room: Gender: F Room Clerk: MARVIN : 1965 Requested By: AYDIN HENNESSY Order Number: [id number] Reading MD: Toro Chen Measurements Intervals [place] Rate: 71 P: 42 GA: 183 QRS: 14 QRSD: 86 T: 17 QT: 379 QTc: 412 Interpretive Statements Sinus rhythm Probable left atrial enlargement Nonspecific T abnrm, anterolateral leads Baseline wander in lead(s) II,III,aVF,V3 Electronically Signed On 12-07-2024 14:28:42 PDT by Toro Chen Please click the below link to view image of tracing.
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
[2024-12-07 11:19] LABS: Hematocrit 40.4 % (36.0-46.0); Hemoglobin 13.5 g/dL (12.2-16.2); Mean Corpuscular Hemoglobin 28.1 pg (28.0-32.0); Mean Corpuscular Volume 84.2 fL (80.0-100.0)
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
[2024-12-07 11:46] LABS: Alanine Aminotransferase 69 U/L (7-40); Albumin 4.3 g/dL (3.2-4.8); Alkaline Phosphatase 125 U/L (46-116); Anion Gap 7 (5-15); BUN/Creatinine Ratio 11.9 (10.0-20.0); Bilirubin, Total 0.6 mg/dL (0.2-1.0); Blood Urea Nitrogen 10 mg/dL (9-23); Calcium 9.5 mg/dL (8.7-10.4); Carbon Dioxide 31 mmol/L (20-31); Chloride 104 mmol/L (98-107); Glucose 181 mg/dL (74-106); Potassium 3.9 mmol/L (3.5-5.1); Sodium 142 mmol/L (136-145); Total Protein 6.8 g/dL (5.7-8.2)
[2024-12-07] MEDS: ATORVASTATIN 20 MG TAB PO ONE (12:29)
[2024-12-07 12:30] LABS: RBC Morphology Normal; Total Cells Counted 100.0 (100)
[2024-12-07 12:32] VITALS: TEMP 98; O2SAT 97
[2024-12-07] MEDS: ONDANSETRON HCL 4 MG/2 ML VIAL IV ONE (12:33)
[2024-12-07] MEDS: NITROGLYCERIN 0.4 MG SL TAB SL ONE (12:34)
[2024-12-07] MEDS: MORPHINE SULFATE INJ 2 MG/ml SYRG IV ONE (12:34)
--- NOTE | 2024-12-07 13:24 | ECG ---
[facility] Test Date: 2024-12-07 Test Time: 11:25:29 Pat Name: MACARIO LEON Department: [facility] ED Patient ID: [facility]-[id number] Room: Gender: F Paper Box Maker: khanh : 1965 Requested By: AYDIN HENNESSY Order Number: [id number] Reading MD: Toro Chen Measurements Intervals [place] Rate: 69 P: 43 CA: 178 QRS: 10 QRSD: 89 T: 9 QT: 391 QTc: 419 Interpretive Statements Sinus rhythm Left atrial enlargement Borderline T abnormalities, anterior leads Electronically Signed On 12-07-2024 14:29:52 PDT by Toro Chen Please click the below link to view image of tracing.
[2024-12-07 17:29] VITALS: BP 136/84; PULSE 63; RESP 16
--- NOTE | 2024-12-10 13:22 | ECG ---
[facility] Test Date: 2024-12-07 Test Time: 10:25:35 Pat Name: MACARIO LEON Department: [facility] ED Room: Gender: F Cardiology Coordinator: MARVIN : 1965 Requested By: AYDIN HENNESSY Order Number: [id number] Reading MD: Measurements Intervals [place] Rate: 76 P: 68 MT: 178 QRS: 26 QRSD: 104 T: 9 QT: 382 QTc: 430 Interpretive Statements Sinus rhythm Probable left atrial enlargement Borderline T abnormalities, inferior leads Borderline ST elevation, lateral leads Baseline wander in lead(s) II,III,aVR,aVL,aVF,V1,V2,V3,V4,V5,V6 Please click the below link to view image of tracing.
== END 2024-12-07 17:30 | disposition home or self-care (01) ==
LOC: ER 10:12
DX: R07.2 Precordial pain (principal); E11.9 Type 2 diabetes mellitus without complications; Z91.040 Latex allergy status; Z91.018 Allergy to other foods; Z88.2 Allergy status to sulfonamides; Z88.0 Allergy status to penicillin; Z88.5 Allergy status to narcotic agent; Z98.890 Other specified postprocedural states
CPT/HCPCS: 36415; 71045; 73120; 80053; 82947; 84484; 85007; 85027; 85379; 93005; 96374; 96375; 99285; J2270; J2405; 82962